=== PATIENT | female | born 1960 | race Caucasian/White ===

== ENCOUNTER 2019-11-11 13:28 | Observation (INO) | payer OTHER, MEDICAID, SELFPAY ==
[2019-11-11] VITALS (14 sets, daily range): BP systolic 132–161; BP diastolic 68–113; PULSE 71–107; RESP 14–20; TEMP 36.8–37.1; O2SAT 95–100; BMI 36.6
--- NOTE | 2019-11-11 13:51 | ED_ITS ---
HPI - SOB/Dyspnea General Chief Complaint: Shortness of Breath/Dyspnea Stated Complaint: called 911 for SOB/dizziness/emt sent to ER Time Seen by Provider: 11/11/19 13:34 Source: patient Mode of arrival: Ambulatory Limitations: no limitations History of Present Illness HPI Narrative: PATIENT IS A 58-YEAR-OLD FEMALE WHO IS WHO PRESENTS WITH SHORTNESS OF BREATH AND LIGHTHEADEDNESS. She states that this morning she stood up and got a little lightheaded and had some shaking afterwards she felt extremely short of breath which prompted her to call 911. She was not transported by EMS but came in for evaluation. She has no chest pain no fevers no body aches no sore throat. She denies any orthopnea or extremity edema. She says she does get short of breath with exertion. She had an episode similar to this at Thanksgiving at her parent's house as well. sHe admits to drinking alcohol last few nights but typically does not. She denies any recent travel no hemoptysis. MD Complaint: shortness of breath Related Data Home Medications Medication Instructions Recorded Confirmed No Known Home Medications 11/11/19 11/11/19 Allergies Allergy/AdvReac Type Severity Reaction Status Date / Time No Known Drug Allergies Allergy Verified 11/11/19 13:40 Review of Systems Review of Systems Narrative: GENERAL: Denies chills, fatigue, malaise, fever, sweats, travel HEENT: Denies sinus pain, ear pain, sore throat, difficulty swallowing, neck pain RESPIRATORY: See HPI CARDIOVASCULAR: Denies chest pain, palpitations, orthopnea, edema GASTROINTESTINAL: Denies nausea, vomiting, abdominal pain, diarrhea, constipation, melena. : Denies dysuria, frequency, incontinence, hematuria, urinary retention, flank pain. MUSCULOSKELETAL: Denies weakness, joint pain, or bony pain SKIN: No rash, no erythema, no pruritus NEUROLOGIC: Denies weakness, dizziness, headache, numbness, change in speech, confusion PSYCHIATRIC: No concerning psychosocial issues. 12 point review of systems is negative except for those stated above and HPI Patient History Medical History Patient denies medical problems (Acute) Social History household members: family Smoking Status: Never smoker Smoking Status: Never smoker alcohol intake frequency: 3 or more drinks per day Substance Use Type: does not use Exam Initial Vital Signs Initial Vital Signs: Vital Signs Temperature 98.3 F 11/11/19 13:28 Pulse Rate 97 H 11/11/19 13:28 Respiratory Rate 14 11/11/19 13:28 Blood Pressure 153/113 H 11/11/19 13:28 Pulse Oximetry 98 11/11/19 13:28 GENERAL: Well-appearing, well-nourished and in no acute distress. HEENT: Head atraumatic,EOMI, pupils reactive, face symmetric, moist mucous membranes CARDIOVASCULAR: Regular rate and rhythm without murmurs, rubs or gallops. RESPIRATORY: Breath sounds equal bilaterally, no wheezes rales or rhonchi. ABDOMEN: Soft, nontender. Normoactive bowel sounds all 4 quadrants. No guardin g or rebound. EXTREMITIES: Normal range of motion, no clubbing or edema. Neurovascularly intact NEUROLOGICAL: Alert and oriented x4.Normal gait and speech. Cranial nerves II through XII grossly intact. SKIN: Warm, dry, no laceration, no petechiae, no rashes or lesions. Course Orders Ordered: ED Orders 11/11/19 13:39 B Type Natriuretic Peptide Stat Complete Blood Count AUTO DIFF Stat Comprehensive Metabolic Panel Stat D Dimer Stat Lipase Stat Partial Thromboplastin Time Stat Prothrombin Time INR Stat Troponin & CK Cardiac Panel Stat 11/11/19 13:51 XR chest 1V Stat EKG-12 Lead Stat 11/11/19 13:54 Magnesium Stat 11/11/19 14:22 CT angio chest PE protocol Stat Acetaminophen (Tylenol) 650 mg PO Q6HR PRN PRN Reason: Fever/Mild Pain (1-3) Al Hydrox/Mg Hydrox/Simethicone (Maalox Plus) 30 ml PO Q6HR PRN PRN Reason: Dyspepsia Naloxone HCl (Narcan) 0.2 mg IV Q2MIN PRN PRN Reason: Opiate Reversal Discontinued Medications Sodium Chloride (Normal Saline 0.9%) 1,000 mls @ 1,000 mls/hr IV BOLUS ONE Stop: 11/11/19 15:26 Last Infusion: 11/11/19 16:30 Dose: 0 mls/hr Documented by: Admin: 11/11/19 14:32 Dose: 1,000 mls/hr Documented by: ABAD Metoprolol Tartrate (Lopressor) 5 mg IV NOW ONE Stop: 11/11/19 14:27 Last Admin: 11/11/19 14:32 Dose: 5 mg Documented by: ABAD Consultations Consultation #1: Cardiology, recommends patient be admitted for observation on the monitor. She likely was having longer runs at home causing her to be symptomatic. May require metoprolol but also request an echocardiogram. Time: 15:58 Vital Signs Vital signs: Vital Signs - 8 hr 11/11/19 13:28 11/11/19 14:06 11/11/19 14:15 Temperature 98.3 F Pulse Rate 97 H 107 H 101 H Respiratory Rate 14 15 18 Blood Pressure 153/113 H Blood Pressure [Right Arm] 145/68 H 154/90 H Pulse Oximetry 98 97 97 11/11/19 14:33 11/11/19 14:51 11/11/19 15:22 Temperature Pulse Rate 99 H 84 81 Respiratory Rate 18 15 16 Blood Pressure Blood Pressure [Right Arm] 137/95 H 141/104 H Pulse Oximetry 100 97 95 11/11/19 15:31 11/11/19 16:00 Temperature Pulse Rate 82 79 Respiratory Rate 16 16 Blood Pressure Blood Pressure [Right Arm] 132/95 H 153/97 H Pulse Oximetry 98 99 MDM - SOB/Dyspnea Lab Data Attestation: I reviewed the patient's lab results. Result diagrams: 11/11/19 13:39 11/11/19 13:39 Labs: Lab Results 11/11/19 11/11/19 11/11/19 Range/Units 13:39 13:39 13:39 WBC 7.7 (4.5-11.0) X10^3/uL RBC 4.49 (4.0-5.2) X10^6/uL Hgb 14.5 (12.0-16.0) g/dL Hct 41.9 (36-46) % MCV 93.3 (80-100) fL MCH 32.3 (26-34) PG MCHC 34.7 (30-36) % RDW 16.4 H (11.6-14.8) % Plt Count 265 (150-400) X10^3/uL Neut % (Auto) 66.7 (50-75) % Lymph % (Auto) 19.2 L (25-40) % Thurston % (Auto) 11.3 (3-14) % Eos % (Auto) 0.8 L (2-4) % Baso % (Auto) 2.0 (0-2) % Neut # (Auto) 5200 (0695-1697) /uL Lymph # (Auto) 1500 (6291-4549) /uL Thurston # (Auto) 900 (0-900) /uL Eos # (Auto) 100 (0-450) /uL Baso # (Auto) 200 H (0-100) /uL PT 11.1 (10.1-12.7) SECONDS INR 1.0 (0.9-1.3) APTT 30 (26.4-36.2) SECONDS D-Dimer (<230) ng/mL Sodium 139 (137-145) mmol/L Potassium 4.2 (3.4-5.1) mmol/L Chloride 103 (98-107) mmol/L Carbon Dioxide 23 (22-32) mmol/L BUN 14 (7-17) mg/dL Creatinine 0.80 (0.52-1.04) mg/dL Estimated GFR > 60.0 (>60) mL/min BUN/Creatinine Ratio 17.5 (6-22) Glucose 114 H (70-100) mg/dL Calcium 10.2 (8.4-10.2) mg/dL Magnesium (1.6-2.3) mg/dL Total Bilirubin 0.7 (0.2-1.3) mg/dL AST 58 H (14-36) IU/L ALT 47 H (<35) IU/L Alkaline Phosphatase 67 (38-126) U/L Total Creatine Kinase 50 (30-135) U/L CK-MB (CK-2) TNP CK-MB (CK-2) Rel Index TNP Troponin I < 0.012 (0.01-0.034) ng/mL B-Natriuretic Peptide (<100) Total Protein 8.3 H (6.3-8.2) g/dL Albumin 4.8 (3.5-5.0) g/dL Globulin 3.5 (1.7-4.1) g/dL Albumin/Globulin Ratio 1.4 (1.0-2.8) Lipase 97 (23-300) U/L TSH (0.47-4.68) uIU/mL 11/11/19 11/11/19 11/11/19 Range/Units 13:39 13:39 13:39 WBC (4.5-11.0) X10^3/uL RBC (4.0-5.2) X10^6/uL Hgb (12.0-16.0) g/dL Hct (36-46) % MCV (80-100) fL MCH (26-34) PG MCHC (30-36) % RDW (11.6-14.8) % Plt Count (150-400) X10^3/uL Neut % (Auto) (50-75) % Lymph % (Auto) (25-40) % Thurston % (Auto) (3-14) % Eos % (Auto) (2-4) % Baso % (Auto) (0-2) % Neut # (Auto) (9735-0671) /uL Lymph # (Auto) (1029-8659) /uL Thurston # (Auto) (0-900) /uL Eos # (Auto) (0-450) /uL Baso # (Auto) (0-100) /uL PT (10.1-12.7) SECONDS INR (0.9-1.3) APTT (26.4-36.2) SECONDS D-Dimer 520 H (<230) ng/mL Sodium (137-145) mmol/L Potassium (3.4-5.1) mmol/L Chloride (98-107) mmol/L Carbon Dioxide (22-32) mmol/L BUN (7-17) mg/dL Creatinine (0.52-1.04) mg/dL Estimated GFR (>60) mL/min BUN/Creatinine Ratio (6-22) Glucose (70-100) mg/dL Calcium (8.4-10.2) mg/dL Magnesium (1.6-2.3) mg/dL Total Bilirubin (0.2-1.3) mg/dL AST (14-36) IU/L ALT (<35) IU/L Alkaline Phosphatase (38-126) U/L Total Creatine Kinase (30-135) U/L CK-MB (CK-2) CK-MB (CK-2) Rel Index Troponin I (0.01-0.034) ng/mL B-Natriuretic Peptide < 100 (<100) Total Protein (6.3-8.2) g/dL Albumin (3.5-5.0) g/dL Globulin (1.7-4.1) g/dL Albumin/Globulin Ratio (1.0-2.8) Lipase (23-300) U/L TSH 1.42 (0.47-4.68) uIU/mL 12// Range/Units 13:54 WBC (4.5-11.0) X10^3/uL RBC (4.0-5.2) X10^6/uL Hgb (12.0-16.0) g/dL Hct (36-46) % MCV (80-100) fL MCH (26-34) PG MCHC (30-36) % RDW (11.6-14.8) % Plt Count (150-400) X10^3/uL Neut % (Auto) (50-75) % Lymph % (Auto) (25-40) % Thurston % (Auto) (3-14) % Eos % (Auto) (2-4) % Baso % (Auto) (0-2) % Neut # (Auto) (6736-8668) /uL Lymph # (Auto) (4041-9765) /uL Thurston # (Auto) (0-900) /uL Eos # (Auto) (0-450) /uL Baso # (Auto) (0-100) /uL PT (10.1-12.7) SECONDS INR (0.9-1.3) APTT (26.4-36.2) SECONDS D-Dimer (<230) ng/mL Sodium (137-145) mmol/L Potassium (3.4-5.1) mmol/L Chloride (98-107) mmol/L Carbon Dioxide (22-32) mmol/L BUN (7-17) mg/dL Creatinine (0.52-1.04) mg/dL Estimated GFR (>60) mL/min BUN/Creatinine Ratio (6-22) Glucose (70-100) mg/dL Calcium (8.4-10.2) mg/dL Magnesium 1.8 (1.6-2.3) mg/dL Total Bilirubin (0.2-1.3) mg/dL AST (14-36) IU/L ALT (<35) IU/L Alkaline Phosphatase (38-126) U/L Total Creatine Kinase (30-135) U/L CK-MB (CK-2) CK-MB (CK-2) Rel Index Troponin I (0.01-0.034) ng/mL B-Natriuretic Peptide (<100) Total Protein (6.3-8.2) g/dL Albumin (3.5-5.0) g/dL Globulin (1.7-4.1) g/dL Albumin/Globulin Ratio (1.0-2.8) Lipase (23-300) U/L TSH (0.47-4.68) uIU/mL Imaging Data Chest x-ray: Radiologist's Impression: PROCEDURE: XR CHEST 1V INDICATIONS: chest pain TECHNIQUE: One view of the chest was acquired. COMPARISON: None. FINDINGS: Surgical changes and devices: None. Lungs and pleura: Lungs are clear. No pleural effusions or pneumothorax. Mediastinum: Mediastinal contours appear normal. Heart size is normal. Bones and chest wall: No suspicious bony lesions. Overlying soft tissues appear unremarkable. IMPRESSION: No acute cardiopulmonary findings. Dictated by: Cari Womack M.D. on 11/11/2019 at 13:21 CT scan - chest: Radiologist's Impression: PROCEDURE: CT ANGIO CHEST PE PROTOCOL INDICATIONS: sob with + dimer TECHNIQUE: After the administration of intravenous contrast, 2 mm thick sections acquired from the pulmonary apices to the posterior costophrenic angles. 3-dimensional maximum intensity projection (MIP) coronal and sagittal reformats were then acquired through the thorax. For radiation dose reduction, the following was used: automated exposure control, adjustment of mA and/or kV according to patient size. COMPARISON: None. FINDINGS: Image quality: Excellent. Pulmonary arteries: Pulmonary arteries are normal in size, and demonstrate no intraluminal filling defects to suggest central pulmonary embolism. Lungs and pleura: Lungs are clear. No pleural effusions or pneumothorax. Central and peripheral airways are patent. Mediastinum: Heart size is normal, without pericardial effusion. No mediastinal or hilar adenopathy. Thoracic aorta is normal in caliber and enhancement. Esophagus is normal in caliber, without hiatal hernia. Bones and chest wall: Mild circumferential wall thickening involving the distal esophagus with prominent paraesophageal lymph nodes. Abdomen: Diffuse fatty infiltration of the visualized liver. Visualized upper abdominal solid organs appear normal in the early arterial phase of enhancement. IMPRESSION: 1. No pulmonary embolus. 2. No lung consolidation or pleural effusions. 3. Mild circumferential wall thickening involving the distal esophagus with prominent adjacent paraesophageal lymph nodes which could represent esophagitis or early neoplastic process. Recommend endoscopy when clinically feasible. 4. Hepatic steatosis. Dictated by: Awilda Cheng MD, PhD on 11/11/2019 at 15:17 ECG Data Attestation: I personally reviewed and interpreted this ECG as follows: Prior ECG tracings: not available for review Interpretation: Normal sinus rhythm rate 100 p.r[address] interval [address] changes MDM Narrative Medical decision making narrative: Patient has had about 3 4 runs of nonsustained ventricular tachycardia lasting about 5 seconds in certain less than 10 seconds. His she says that she does feel a little wear during these t imes but she says nothing like she did at home. D-dimer is over [address] to rule out PE. CT is negative she is given IV fluids and 1 dose of IV Lopressor. Cardiology consult recommends at least observation. Thinks that she likely had longer runs at home. Her runs in the emergency department have not been long enough for her to be symptomatic. Patient even concurs with this she states agustin t she previously home felt much worse and in the emergency department did not feel that bad. Dr. tidwell rash updated on patient's symptoms test results and cardiology recommendations. Discharge Plan Departure Patient Disposition: Admitted as Observation Clinical Impression: Arrhythmia Qualifiers: Arrhythmia type: ventricular tachycardia Qualified Code(s): I47.2 - Ventricular tachycardia Discharge Date/Time: 11/11/19 16:45 Admit Date/Time: 11/11/19 16:15 Admit Provider: Julian Kong
[2019-11-11 14:02] LABS: Prothrombin Time 11.1 SECONDS (10.1-12.7)
[2019-11-11 14:03] LABS: Add Manual Diff / Slide Review NO; Basophils Absolute Auto 200 /uL (0-100); Eosinophils Absolute Auto 100 /uL (0-450); Eosinophils Percent Auto 0.8 % (2-4); Hematocrit 41.9 % (36-46); Hemoglobin 14.5 g/dL (12.0-16.0); Lymphocytes Absolute Auto 1500 /uL (1100-4500); Lymphocytes Percent Auto 19.2 % (25-40); Mean Corpuscular HGB Conc 34.7 % (30-36); Mean Corpuscular Hemoglobin 32.3 PG (26-34); Mean Corpuscular Volume 93.3 fL (80-100); Monocytes Absolute Auto 900 /uL (0-900); Monocytes Percent Auto 11.3 % (3-14); Neutrophils Absolute Auto 5200 /uL (1500-7000); Neutrophils Percent Auto 66.7 % (50-75); Platelet Count 265 X10^3/uL (150-400); Red Blood Cell Count 4.49 X10^6/uL (4.0-5.2); Red Cell Distribution Width 16.4 % (11.6-14.8); White Blood Cell Count 7.7 X10^3/uL (4.5-11.0)
[2019-11-11 14:05] LABS: PTT Partial Thromboplastin Tim 30 SECONDS (26.4-36.2)
[2019-11-11 14:08] LABS: Alanine Aminotransferase 47 IU/L (<35); Albumin 4.8 g/dL (3.5-5.0); Albumin Globulin Ratio 1.4 (1.0-2.8); Alkaline Phosphatase 67 U/L (38-126); Aspartate Aminotransferase 58 IU/L (14-36); BUN Creatinine Ratio 17.5 (6-22); Bilirubin Total 0.7 mg/dL (0.2-1.3); Blood Urea Nitrogen 14 mg/dL (7-17); Calcium 10.2 mg/dL (8.4-10.2); Carbon Dioxide 23 mmol/L (22-32); Chloride 103 mmol/L (98-107); Creatine Kinase 50 U/L (30-135); Estimated Glomerular Filt Rate > 60.0 mL/min (>60); Globulin 3.5 g/dL (1.7-4.1); Glucose 114 mg/dL (70-100); HEMOLYSIS < 15 (0-50); Lipase 97 U/L (23-300); Potassium 4.2 mmol/L (3.4-5.1); Sodium 139 mmol/L (137-145); Total Protein 8.3 g/dL (6.3-8.2)
[2019-11-11 14:16] LABS: D Dimer 520 ng/mL (<230)
[2019-11-11 14:19] LABS: Troponin I < 0.012 ng/mL (0.01-0.034)
--- NOTE | 2019-11-11 14:22 | DI.CT.S_ITS ---
PROCEDURE: CT ANGIO CHEST PE PROTOCOL INDICATIONS: sob with + dimer TECHNIQUE: After the administration of intravenous contrast, 2 mm thick sections acquired from the pulmonary apices to the posterior costophrenic angles. 3-dimensional maximum intensity projection (MIP) coronal and sagittal reformats were then acquired through the thorax. For radiation dose reduction, the following was used: automated exposure control, adjustment of mA and/or kV according to patient size. COMPARISON: None. FINDINGS: Image quality: Excellent. Pulmonary arteries: Pulmonary arteries are normal in size, and demonstrate no intraluminal filling defects to suggest central pulmonary embolism. Lungs and pleura: Lungs are clear. No pleural effusions or pneumothorax. Central and peripheral airways are patent. Mediastinum: Heart size is normal, without pericardial effusion. No mediastinal or hilar adenopathy. Thoracic aorta is normal in caliber and enhancement. Esophagus is normal in caliber, without hiatal hernia. Bones and chest wall: Mild circumferential wall thickening involving the distal esophagus with prominent paraesophageal lymph nodes. Abdomen: Diffuse fatty infiltration of the visualized liver. Visualized upper abdominal solid organs appear normal in the early arterial phase of enhancement. IMPRESSION: 1. No pulmonary embolus. 2. No lung consolidation or pleural effusions. 3. Mild circumferential wall thickening involving the distal esophagus with prominent adjacent paraesophageal lymph nodes which could represent esophagitis or early neoplastic process. Recommend endoscopy when clinically feasible. 4. Hepatic steatosis. Dictated by: Awilda Cheng MD, PhD on 11/11/2019 at 15:17 Approved by: Awilda Cheng MD, PhD on 11/11/2019 at 15:21
[2019-11-11 14:27] LABS: B Type Natriuretic Peptide < 100 (<100)
[2019-11-11] MEDS: SODIUM CHLORIDE 0.9% 1,000 ML 1000 ML IV (14:32)
[2019-11-11] MEDS: METOPROLOL TARTRATE 5 MG/5 ML INJ IV (14:32)
[2019-11-11 16:20] LABS: Magnesium 1.8 mg/dL (1.6-2.3)
--- NOTE | 2019-11-11 17:07 | DI.ECHO.S_ITS ---
[place] [facility]---------+ [facility] +---------+ : : [address] [place] : : : : [id number] : : : : Phone: [phone]+ Echocardiogram Report + + :Name: EVER TAN Study Date: 11/12/2019 Height: 65 in : :[facility] Weight: 220 lb : : Gender: Female BSA: 2.1 m2 : :: 1960 Age: 59 yrs BP: 143/94 mmHg: :Reason For Study: VTACH : :Ordering Physician: Dr. Jordan : :Luann Performed By: Wander Bryant : :Referring: TEENA PANTOJA : + + Interpretation Summary The ejection fraction is estimated to be 50-55%. Poor endocardial definition, however inferoapical hypokinesis is suspected. There is no significant valvular heart disease. Procedure: A two-dimensional transthoracic echocardiogram with color flow and Doppler was performed. The study quality was technically adequate. There is no prior echocardiogram noted for this patient. The patient was in normal sinus rhythm during the exam. Left Ventricle: The left ventricle is borderline dilated. There is normal left ventricular wall thickness. The ejection fraction is estimated to be 50- 55%. Poor endocardial definition, however inferoapical hypokinesis is suspected. Right Ventricle: The right ventricle is normal in size and function. Atria: The left atrial size is normal. Right atrial size is normal. The interatrial septum is intact with no evidence for an atrial septal defect. Mitral Valve: The mitral valve is normal in structure and function. There is trace mitral regurgitation. Aortic Valve: The aortic valve is trileaflet. The aortic valve opens well. There is trace aortic regurgitation. Tricuspid Valve: The tricuspid valve is normal in structure and function. There is trace tricuspid regurgitation. Pulmonary artery pressures cannot be estimated because of the lack of a measurable TR jet velocity. Pulmonic Valve: The pulmonic valve is normal in structure and function. There is trace pulmonic regurgitation. Great Vessels: The aortic root is borderline dilated. The ascending aorta is at the upper limits of normal in size. The aortic arch is at the upper limits of normal in size. Mild pulmonary artery dilation. The inferior vena cava was not well visualized. Pericardium/ Pleura There is no pericardial effusion. There is no pleural effusion. MMode/2D Measurements & Calculations LVIDd: 5.2 cm LVOT diam: 2.2 cm LVIDs: 3.6 cm Ao root diam: 3.6 cm FS: 31.2 % Aortic Jxn: 3.2 cm EPSS: 0.78 cm asc Aorta Diam: 3.6 cm IVSd: 1.1 cm LVPWd: 0.94 cm LV wallis. diameter/BSA (cm/m^2): 2.5 LV sys. diameter/BSA (cm/m^2): 1.7 LA A2 area: 19.5 cm2 RA long axis: 4.1 cm LA A4 area: 17.7 cm2 RA area: 9.7 cm2 LA length (vol): 5.6 cm RA vol: 19.3 ml LA vol: 52.3 ml RA : 9.4 ml/m2 LA vol index: 25.4 ml/m2 TAPSE: 2.1 cm Doppler Measurements & Calculations Ao V2 max: 126.8 cm/sec LVOT Max Noe: 97.2 cm/sec Ao V2 mean: 83.3 cm/sec LV V1 max P.8 mmHg Ao max P.4 mmHg LV V1 VTI: 21.6 cm Ao mean P.2 mmHg CONNOR(I,D): 3.3 cm2 Ao V2 VTI: 24.9 cm CONNOR(V,D): 3.0 cm2 sev ratio: 0.86 CONNOR indexed to BSA (cm^2/m^2): 1.6 MV E max noe: 50.1 cm/sec PA V2 max: 37.8 cm/sec MV A max noe: 86.4 cm/sec PA V2 mean: 28.9 cm/sec MV E/A: 0.58 PA mean P.37 mmHg Med Peak E' Noe: 4.1 cm/sec PA Accel Time: 0.13 sec E/E' med: 12.1 Lat Peak E' Noe: 6.3 cm/sec E/E' lat: 8.0 E/e' average: 10.1 MV dec time: 0.26 sec SV(LVOT): 83.4 ml [place] Physician:11:48 AM
--- NOTE | 2019-11-11 17:09 | P.HP_ITS ---
History of Present Illness History of Present Illness Date Patient Seen: 11/11/19 Chief complaint: called 911 for SOB/dizziness/emt sent to ER Narrative: Patient is a 59-year-old female with obesity but who otherwise has been in good health, not on any medications, presented to emergency department with complaints of worsening shortness of breath and lightheadedness. On ER telemetry she had several runs of wide complex tachycardia, longest 15 beats, which were asymptomatic. Patient states she was feeling short of breath in lightheaded when came into the ER and then symptoms went away once she was moved to hospital bed. Patient states she had more severe symptoms early this morning which would come and go and seemed to be relieved by rest. She 1st noticed onset of intermittent shortness of breath, lightheadedness and near syncope about 2 weeks ago with significant worsening of symptoms this a.m.. Symptoms did seem to come on during light activity and relieved by rest. She denies any chest pain or syncope. She has 1 cup of coffee in a.m. and does not take any OTC supplements. She does report excess alcohol use typically 3 glasses of wine a day and states she had a little more alcohol last night. She is a nonsmoker. Family history positive for atrial fibrillation in her mom but no history of coronary artery disease. ER vitals initially hypertensive with BP 153/98 and stay moderately elevated, heart rate 80, respirations normal, O2 sat 99%. EKG normal sinus rhythm with PAC. Normal troponin, CBC, lytes, magnesium 1.8. D- dimer mildly elevated but CT angio negative for pulmonary embolism. The radiologist reported distal esophageal thickening with prominent adjacent paraesophageal lymph nodes on CT. Patient does note occasional acid reflux. The ER provider reviewed case with cardiology warehouse production worker, Dr. Vigil, who recommended patent get admitted for telemetry monitoring and ECO. Patient is established at [facility] with provider Jennifer Trevizo. Patient History Medical History Patient denies medical problems (Acute) Family & Social History Safety & Behavioral: Feels Safe in Current Yes Environment Tobacco & Substance use: Smoking Status Never smoker alcohol intake frequency 3 or more drinks per day Substance Use Type does not use Meds Home Medications and Allergies Home Medications Medication Instructions Recorded Confirmed Type No Known Home Medications 11/11/19 11/11/19 History Allergies Allergy/AdvReac Type Severity Reaction Status Date / Time No Known Drug Allergies Allergy Verified 11/11/19 13:40 Review of Systems Review of Systems ROS Unobtainable: All systems reviewed & are unremarkable except as noted in HPI and below Exam Vital Signs (past 8 hours): - 11/11/19 13:28 11/11/19 14:06 11/11/19 14:15 Temperature 98.3 F Pulse Rate 97 H 107 H 101 H Respiratory Rate 14 15 18 Blood Pressure 153/113 H Blood Pressure [Right Arm] 145/68 H 154/90 H Pulse Oximetry 98 97 97 11/11/19 14:33 11/11/19 14:51 11/11/19 15:22 Temperature Pulse Rate 99 H 84 81 Respiratory Rate 18 15 16 Blood Pressure Blood Pressure [Right Arm] 137/95 H 141/104 H Pulse Oximetry 100 97 95 11/11/19 15:31 11/11/19 16:00 Temperature Pulse Rate 82 79 Respiratory Rate 16 16 Blood Pressure Blood Pressure [Right Arm] 132/95 H 153/97 H Pulse Oximetry 98 99 Oxygen Delivery Method Room Air Narrative Exam Narrative: GENERAL: This is an alert well-nourished, well-developed patient, in no apparent distress. HEAD: Atraumatic. Normocephalic. EYES: Pupils equal, round and reactive. Extraocular motions intact. No scleral icterus. No injection or drainage. OROPHARYNX: moist mucosa NECK: Trachea midline. No JVD or lymphadenopathy. CARDIOVASCULAR: Normal S1 and S2, regular rate and rhythm without murmurs, gallops, or rubs. RESPIRATORY: Clear to auscultation bilaterally. GASTROINTESTINAL: Abdomen nondistended, soft, non-tender. No hepato- splenomegaly, or palpable masses. EXTREMITIES: No edema. NEUROLOGICAL: Alert, well oriented, speech is intact, normal bilateral upper and lower extremity strength SKIN: warm, dry, no rash Objective Labs Result Diagrams: 11/11/19 13:39 11/11/19 13:39 Labs: Laboratory Results - last 24 hr 11/11/19 11/11/19 11/11/19 13:39 13:39 13:39 WBC 7.7 RBC 4.49 Hgb 14.5 Hct 41.9 MCV 93.3 MCH 32.3 MCHC 34.7 RDW 16.4 H Plt Count 265 Neut % (Auto) 66.7 Lymph % (Auto) 19.2 L Kleberg % (Auto) 11.3 Eos % (Auto) 0.8 L Baso % (Auto) 2.0 Neut # (Auto) 5200 Lymph # (Auto) 1500 Kleberg # (Auto) 900 Eos # (Auto) 100 Baso # (Auto) 200 H PT 11.1 INR 1.0 APTT 30 D-Dimer Sodium 139 Potassium 4.2 Chloride 103 Carbon Dioxide 23 BUN 14 Creatinine 0.80 Estimated GFR > 60.0 BUN/Creatinine Ratio 17.5 Glucose 114 H Calcium 10.2 Magnesium Total Bilirubin 0.7 AST 58 H ALT 47 H Alkaline Phosphatase 67 Total Creatine Kinase 50 CK-MB (CK-2) TNP CK-MB (CK-2) Rel Index TNP Troponin I < 0.012 B-Natriuretic Peptide Total Protein 8.3 H Albumin 4.8 Globulin 3.5 Albumin/Globulin Ratio 1.4 Lipase 97 11/11/19 11/11/19 11/11/19 13:39 13:39 13:54 WBC RBC Hgb Hct MCV MCH MCHC RDW Plt Count Neut % (Auto) Lymph % (Auto) Kleberg % (Auto) Eos % (Auto) Baso % (Auto) Neut # (Auto) Lymph # (Auto) Kleberg # (Auto) Eos # (Auto) Baso # (Auto) PT INR APTT D-Dimer 520 H Sodium Potassium Chloride Carbon Dioxide BUN Creatinine Estimated GFR BUN/Creatinine Ratio Glucose Calcium Magnesium 1.8 Total Bilirubin AST ALT Alkaline Phosphatase Total Creatine Kinase CK-MB (CK-2) CK-MB (CK-2) Rel Index Troponin I B-Natriuretic Peptide < 100 Total Protein Albumin Globulin Albumin/Globulin Ratio Lipase Assessment & Plan Assessment & Plan narrative: 1. Nonsustained wide complex tachycardia, present on admission -this could be V-tach versus SVT with aberrant conduction, patient had several runs of wide complex tachycardia in the ER, longus 15 beats, and was asymptomatic during this time, however she may have had more Systane tachycardia at home which resulted in her reported symptoms of dyspnea and near syncope. Patient has excess alcohol use which may be precipitating tachycardia. Also symptoms appear to be associated with exertion and relieved by rest raising concern for occlusive coronary artery disease. As noted, normal troponin, lytes, magnesium. -admit to observation for telemetry monitoring -check TSH, repeat troponin -transthoracic echo in a.m. -myocardial perfusion stress test 2. Elevated blood pressure, present on admission -patient with moderately elevated BP in ER without prior diagnosis of hypertension -monitor blood pressures and consider starting on antihypertensive medication 3. Distal esophageal thickening on CT -radiologist noted distal esophageal thickening and prominent paraesophageal lymph nodes, differential diagnosis includes acid reflux disease versus esophageal CA, patient does report symptoms of occasional heartburn -patient advised of CT findings with recommendation to have an upper endoscopy arranged as outpatient 4. Alcohol dependency -patient aware of excess drinking and states she does plan to cut back on alcohol intake
[2019-11-11 18:12] LABS: TSH w/ Reflex to FT4 1.42 uIU/mL (0.47-4.68)
--- NOTE | 2019-11-11 20:30 | PC.NURSE ---
Admit note: Latoya brought from ER via stretcher, able to transfer self to bed. Appears very anxious r/t situation, for the 1st 10-15 minutes she was in her room, she was looking at nurse and back to WALL WASHER very quickly, speech rapid, oriented to situation, asking good questions r/t V-tach and reason for hospitalization although appearing very nervous & apprehensive. She told me multiple times I know I need to stop drinking and eating the way I have-I am going back on a strict diet & may go vegan again. I printed her educational forms about V-Tach and DI for V-Tach. I told her that since the ER had given her Metoprolol she has had no more reported runs of V-tach and very rarely a PVC. Telemetry in place, rhythm is normal sinus with rate in 70's & 80's. BP at time of admission was 161/103, since then patient more calm & relaxed, last BP 134/80. Earlier tonight I notified Dr Kong of hypertension. She denies any pain, nausea or lightheadedness. RA oxygen saturation 100% and respirations 18-20/minute. Afebrile. She reported recent dog bite on her right thumb, thumb covered with a bandaid. She refused me to change bandaid but did say she has punctures. She told me that yesterday her thumb seemed swollen but today it did not feel swollen. No redness or swelling observed to hand or thumb outside of bandaid. Denies nausea, took bites of vegetarian dinner that our kitchen brought but refused majority of it saying it is awful. Cup of tomato soup given per her request. She is ambulating in room independently, wearing skid proof socks & denies recent falls. Instructed to call nurse if she has needs or concerns. Oriented to room & call button.
[2019-11-11 22:32] LABS: Troponin I 0.013 ng/mL (0.01-0.034)
[2019-11-12] VITALS (10 sets, daily range): BP systolic 131–143; BP diastolic 52–94; PULSE 69–83; RESP 16–20; TEMP 36.3–37.1; O2SAT 95–100
--- NOTE | 2019-11-12 00:07 | PC.NURSE ---
Addendum entered by Yung Etienne R.N. 11/12/19 03:57: 0340: Call from GWENDOLYN Castle in ICU to report pt having multifocal PVCs, though HR 80-90's. D.MORRIS Tovar notified. Pt put on O2 2L/NC. Addendum entered by Yung Etienne R.N. 11/12/19 03:26: 0315: Pt up to bathroom at 0300. ICU reports pt had a few short runs of SVT, which is resolving. HR at this time is in the 90's, with some PVCs. Pt denies shortness of breath, chest pain or fluttering sensation, or dizziness. Resting in bed. Original Note: Photographic Colorist Note: 0000: Awake, resting in bed. Pt denies chest pain or pressure, or any fluttering feeling. Vital signs stable. IV in place in lt AC. Remains on telemetry.
[2019-11-12 06:30] LABS: Add Manual Diff / Slide Review NO; Basophils Absolute Auto 0 /uL (0-100); Basophils Percent Auto 0.4 % (0-2); Eosinophils Absolute Auto 100 /uL (0-450); Hematocrit 37.6 % (36-46); Hemoglobin 12.7 g/dL (12.0-16.0); Lymphocytes Absolute Auto 1100 /uL (1100-4500); Lymphocytes Percent Auto 19.9 % (25-40); Mean Corpuscular HGB Conc 33.8 % (30-36); Mean Corpuscular Hemoglobin 32.1 PG (26-34); Mean Corpuscular Volume 94.8 fL (80-100); Monocytes Absolute Auto 800 /uL (0-900); Monocytes Percent Auto 15.9 % (3-14); Neutrophils Absolute Auto 3300 /uL (1500-7000); Neutrophils Percent Auto 61.8 % (50-75); Platelet Count 206 X10^3/uL (150-400); Red Blood Cell Count 3.96 X10^6/uL (4.0-5.2); White Blood Cell Count 5.4 X10^3/uL (4.5-11.0)
[2019-11-12 06:37] LABS: BUN Creatinine Ratio 16.3 (6-22); Blood Urea Nitrogen 13 mg/dL (7-17); Calcium 9.4 mg/dL (8.4-10.2); Carbon Dioxide 26 mmol/L (22-32); Chloride 103 mmol/L (98-107); Estimated Glomerular Filt Rate > 60.0 mL/min (>60); Glucose 114 mg/dL (70-100); HEMOLYSIS < 15 (0-50); Potassium 4.4 mmol/L (3.4-5.1); Sodium 137 mmol/L (137-145)
[2019-11-12 06:49] LABS: Troponin I < 0.012 ng/mL (0.01-0.034)
--- NOTE | 2019-11-12 10:09 | CM.DANOTE ---
DCP: Case received, EMR reviewed and met with patient. Introduced self and role. Was able to meet with patient in her room and obtain baseline health and activity information. DCP assessment completed with information currently available. Patient is a 59 year old female who admitted yesterday afternoon to the care of the hospitalist team. PCP: Dr. Jennifer Trevizo at [facility]. Patient came to the hospital via family vehicle secondary to having some dizziness and shortness of breath. She is here for a cardiac work up, for she has been having some ventricular tachycardia. Met with patient in her room. She is alert and oriented, independent. She is from the [place] area here visiting with her parents for the holidays. Patient stated, this could be happening because I drink too much, I usually have a few glasses of wine at night. She is , and does have a son named Yobany. Confirmed that her primary care is at the [facility]. P: Patient will be having echo and stress test today. She could potentially discharge home today. Melva Reveles RN/Jig And Fixture Builder Apprentice
[2019-11-12] MEDS: SODIUM CHLORIDE 0.9% FLUSH 10 ML IV ×2 (12:59→22:30)
--- NOTE | 2019-11-12 13:53 | PC.NURSE ---
Cardiac: No c/p today, tele has been sr w/pvc's. Has completed echo, awaiting treadmill. Hopes to d/c after tests are completed. Pt denies any concerns at this time.
--- NOTE | 2019-11-12 17:31 | PM.PN.1 ---
Subjective Subjective Date Patient Seen: 11/12/19 Time Patient Seen: 17:37 Interval history: Latoya Soto is a 59-year-old female with past medical history of obesity and alcohol use who was seen today for follow-up frequent supraventricular arrhythmias. She had an echocardiogram today which showed an EF of 50-55%, borderline dilated left ventricle with possible inferior hypokinesis however her endocardial definition was decreased. Her stress test today showed low likelihood of ischemia, however during exercise initiation she developed a supraventricular arrhythmia with left bundle branch morphology. Discussed the case with Cardiology, they recommended continuing to monitor the patient overnight after initiation of metoprolol. Metoprolol was started this evening and the plan is to monitor her for tolerance of this medication and to continue to monitor her arrhythmias. She ultimately will need a cardiac MRI and follow-up with an computer network support specialist as an outpatient for further evaluation of arrhythmogenic RV dysplasia. Exam Vital Signs (past 8 hours): - 11/12/19 12:00 11/12/19 15:45 Temperature 98.6 F 98.5 F Pulse Rate 69 74 Respiratory Rate 18 20 Blood Pressure 135/80 143/88 H Pulse Oximetry 98 98 Oxygen Delivery Method Nasal Cannula Oxygen Flow Rate 0 Narrative Exam Narrative: GENERAL APPEARANCE: Obese female, in no acute distress. SKIN: Inspection of the skin reveals no rashes, ulcerations or petechiae. HEENT: The sclerae were anicteric and conjunctivae were pink and moist. Extraocular movements were intact and pupils were equal, round with normal accommodation. External inspection of the ears and nose showed no scars, lesions, or masses. Lips, teeth, and gums showed normal mucosa. The oral mucosa, hard and soft palate, tongue and posterior pharynx were unremarkable. NECK: Supple and symmetric. There was no thyroid enlargement, and no tenderness, or masses were felt. CHEST: Normal AP diameter and normal contour without any kyphoscoliosis. LUNGS: Auscultation of the lungs revealed no wheezes, rhonchi, or rales. CARDIOVASCULAR: There was a regular rate and rhythm without any murmurs, gallops, rubs. Peripheral pulses were 2+ and symmetric. ABDOMEN: Soft and nontender with normal bowel sounds. No ascites was noted. MUSCULOSKELETAL: There was no tenderness or effusions noted. Muscle strength and tone were normal. EXTREMITIES: No cyanosis, clubbing or edema. NEUROLOGIC: Alert and oriented x 3. Normal affect. Gait was normal. Strength is +5/5 in the Upper Extremities and Lower Extremities Bilaterally. Sensation to touch was normal. Objective Labs Result Diagrams: 11/12/19 06:20 11/12/19 06:20 Labs: Laboratory Results - last 24 hr 11/11/19 11/11/19 11/12/19 13:39 22:05 06:20 WBC 5.4 RBC 3.96 L Hgb 12.7 Hct 37.6 MCV 94.8 MCH 32.1 MCHC 33.8 RDW 17.0 H Plt Count 206 Neut % (Auto) 61.8 Lymph % (Auto) 19.9 L Larue % (Auto) 15.9 H Eos % (Auto) 2.0 Baso % (Auto) 0.4 Neut # (Auto) 3300 Lymph # (Auto) 1100 Larue # (Auto) 800 Eos # (Auto) 100 Baso # (Auto) 0 Sodium Potassium Chloride Carbon Dioxide BUN Creatinine Estimated GFR BUN/Creatinine Ratio Glucose Calcium Troponin I 0.013 TSH 1.42 11/12/19 06:20 WBC RBC Hgb Hct MCV MCH MCHC RDW Plt Count Neut % (Auto) Lymph % (Auto) Larue % (Auto) Eos % (Auto) Baso % (Auto) Neut # (Auto) Lymph # (Auto) Larue # (Auto) Eos # (Auto) Baso # (Auto) Sodium 137 Potassium 4.4 Chloride 103 Carbon Dioxide 26 BUN 13 Creatinine 0.80 Estimated GFR > 60.0 BUN/Creatinine Ratio 16.3 Glucose 114 H Calcium 9.4 Troponin I < 0.012 TSH Assessment & Plan Assessment & Plan narrative: 1. Nonsustained wide complex tachycardia, present on admission - per cardiology this is likely supraventricular with a left bundle branch morphology. It appeared to be exercise induced. Cardiology would like an outpatient evaluation for possible arrhythmogenic RV dysplasia. They recommended a cardiac MRI and EP referral as an outpatient for further evaluation. They recommended initiating beta-amy therapy tonight and monitoring until tomorrow on beta-amy therapy. -continue telemetry -troponins negative, TSH unremarkable -TTE showing EF of 50-55%, possible inferior hypokinesis but poor endocardial definition. She has a borderline dilated left ventricle. No significant valvular disease. -myocardial perfusion stress showed low likelihood of cardiac ischemia. During the treadmill portion she needed to stop quickly as she developed her supraventricular arrhythmia. -outpatient EP referral and cardiac MRI, patient prefers this to be done at [facility] will try and arrange. 2. Elevated blood pressure, present on admission -patient with moderately elevated BP in ER without prior diagnosis of hypertension -she remains mildly elevated, will start metoprolol given recommendations above from cardiology. 3. Distal esophageal thickening on CT -radiologist noted distal esophageal thickening and prominent paraesophageal lymph nodes, differential diagnosis includes acid reflux disease versus esophageal CA, patient does report symptoms of occasional heartburn -patient advised of CT findings with recommendation to have an upper endoscopy arranged as outpatient 4. Alcohol dependency -patient aware of excess drinking and states she does plan to cut back on alcohol intake Dispo: Discharge likely tomorrow Quality VTE Deep Vein Thrombosis/Pulmonary Embolism Present on Admission: No
--- NOTE | 2019-11-12 17:43 | DI.NM.S_ITS ---
DATE OF SERVICE: 11/12/2019 PROCEDURE: Exercise perfusion study. INDICATIONS: Shortness of breath, right QRS tachycardia. RADIOPHARMACEUTICAL: 21.4 mCi of technetium-99m Myoview IV was injected at stress. Please note, this patient does not have any resting study. CARDIAC STRESS: Patient underwent exercise perfusion study under the supervision of an attending staff. She walked on Kevin protocol for 2 minutes 47 seconds and achieved maximum heart rate of 117. At that time, the patient had episode of wide QRS tachycardia. Her resting blood pressure, 150/88. Peak blood pressure reported to be 160/100. Patient felt dyspnea and lightheadedness. Test was terminated. Baseline EKG revealed sinus rhythm with intermittent nonsustained ventricular tachycardia up to 3-beat run as well as ventricular trigemini. During exercise, patient had frequent runs of nonsustained ventricular tachycardia, then had prolonged run of wide QRS tachycardia. During wide QRS tachycardia, there was evidence of capture beat with [place] normal conduction suggestive of ventricular tachycardia. During wide QRS tachycardia, there is a positive deflection in the inferior leads and in the chest leads, left bundle branch block pattern. Patient achieved 4.6 METs of workload. Functional aerobic impairment, +50%. RAW DATA: Breast shadow was seen. GATED STUDY: Stress LV ejection fraction reported to be 65 % without any obvious wall motion abnormalities. Lung/heart ratio is 0.36, which is within normal limits. Stress end-diastolic volume 126 mL. MYOCARDIAL PERFUSION SCAN: Stress supine images revealed small-sized mildly decreased perfusion of distal anterior wall and anterior apex which got resolved during prone images suggestive of breast tissue attenuation artifact. Prone images revealed normal myocardial perfusion. CONCLUSION: This is a normal myocardial perfusion study. However, patient has poor exercise tolerance. During baseline EKG, patient has intermittent nonsustained ventricular tachycardia, and during exercise, had prolonged wide QRS tachycardia run which appears to be ventricular tachycardia. There was capture beat seen suggestive of that we are most likely dealing with ventricular tachycardia. There is a possibility of RV outflow tract origin. Discussed the plan with the hospitalist team, Dr. Estrada. Patient is an alcoholic as well. Recommended optimal dose of beta amy, as well as cardiac MRI to r/o arrhythmogenic RV dysplasia, EP evaluation and discontinuation of alcohol. Latoya Soto - CLIENT SUCCESS DIRECTOR/carrington/ab doc#: [id number]/job#: [id number] dd: 11/12/2019 17:19:00 dt: 11/12/2019 17:25:00 DICTATING MD/COPIES TO: Moni Lewis MD COPIES MNE: LOU
[2019-11-12] MEDS: METOPROLOL ER 25 MG TABLET PO ×2 (20:12→23:36)
[2019-11-13 01:00] VITALS: O2SAT 98
[2019-11-13 04:25] VITALS: BP 136/81; PULSE 76; RESP 16; TEMP 36.6; O2SAT 97
[2019-11-13 05:40] LABS: BUN Creatinine Ratio 13.8 (6-22); Blood Urea Nitrogen 11 mg/dL (7-17); Calcium 9.2 mg/dL (8.4-10.2); Carbon Dioxide 28 mmol/L (22-32); Chloride 105 mmol/L (98-107); Cholesterol 208 mg/dL (140-199); Estimated Glomerular Filt Rate > 60.0 mL/min (>60); Glucose 99 mg/dL (70-100); HDL Cholesterol 51 mg/dL (40-60); HEMOLYSIS < 15 (0-50); LDL Cholesterol Calculated 138 mg/dL (<100); Potassium 4.2 mmol/L (3.4-5.1); Sodium 139 mmol/L (137-145); Triglycerides 94 mg/dL (35-150)
[2019-11-13 05:47] VITALS: O2SAT 97
[2019-11-13 06:06] LABS: Hemoglobin A1C% w Est Avg Glu 5.1 % (4.0-6.0)
[2019-11-13 09:00] VITALS: O2SAT 98
[2019-11-13 09:35] VITALS: BP 124/85; PULSE 60; RESP 16; TEMP 36.6; O2SAT 97
[2019-11-13] MEDS: METOPROLOL ER 25 MG TABLET PO (10:57)
--- NOTE | 2019-11-13 11:15 | PC.NURSE ---
Discharge: Pt feels ready to d/c home. She has been seen by Dr. Estrada and he gave instructions including the pt may drive. She was given her metoprolol prior to leaving since she has to drive to [place]. Reviewed medication information. Pt is planning on buying a bp cuff so she can check her bp at home. Follow up has been scheduled with her nurse prac and release signed to have records sent. Reviewed rest of information. Questions answered. Pt d/c home first with her parents. (she was up visiting them) and then she will drive from parents home to her home in [place]. Pt knows if she has c/p its a 911 call. Pt reports she will be following a new life style. Going back to vegan, stop alcohol, ect. Pt had no questions or concerns when she left.
--- NOTE | 2019-11-13 11:42 | CM.DPC ---
DCP: continued: case received and discussed in Team Rounds. Dr. Estrada stated pt was ok for d/c to home and with outpt follow up. A check in now shows that she did d/c home this morning: see GWENDOLYN Gibson's notes re details.
--- NOTE | 2019-11-17 08:43 | PM.DS.1 ---
History of Present Illness History of Present Illness Date Patient Seen: 06/13/19 Time Patient Seen: 09:30 Chief complaint: called 911 for SOB/dizziness/emt sent to ER Narrative: As per Dr Kong: Patient is a 59-year-old female with obesity but who otherwise has been in good health, not on any medications, presented to emergency department with complaints of worsening shortness of breath and lightheadedness. On ER telemetry she had several runs of wide complex tachycardia, longest 15 beats, which were asymptomatic. Patient states she was feeling short of breath in lightheaded when came into the ER and then symptoms went away once she was moved to hospital bed. Patient states she had more severe symptoms early this morning which would come and go and seemed to be relieved by rest. She 1st noticed onset of intermittent shortness of breath, lightheadedness and near syncope about 2 weeks ago with significant worsening of symptoms this a.m.. Symptoms did seem to come on during light activity and relieved by rest. She denies any chest pain or syncope. She has 1 cup of coffee in a.m. and does not take any OTC supplements. She does report excess alcohol use typically 3 glasses of wine a day and states she had a little more alcohol last night. She is a nonsmoker. Family history positive for atrial fibrillation in her mom but no history of coronary artery disease. ER vitals initially hypertensive with BP 153/98 and stay moderately elevated, heart rate 80, respirations normal, O2 sat 99%. EKG normal sinus rhythm with PAC. Normal troponin, CBC, lytes, magnesium 1.8. D-dimer mildly elevated but CT angio negative for pulmonary embolism. The radiologist reported distal esophageal thickening with prominent adjacent paraesophageal lymph nodes on CT. Patient does note occasional acid reflux. The ER provider reviewed case with cardiology research professional, Dr. Vigil, who recommended patent get admitted for telemetry monitoring and ECO. Patient is established at [facility] with provider Jennifer Trevizo. Discharge Providers Provider Date of admission: 11/11/19 16:15 Discharge Date: 11/13/19 Discharge provider: Joseluis Estrada DO Summary Hospital Course Hospital Course: Latoya Soto is a 59-year-old female with past medical history of obesity and alcohol use who was admitted for frequent supraventricular arrhythmias. She had an echocardiogram which showed an EF of 50-55%, borderline dilated left ventricle with possible inferior hypokinesis however her endocardial definition was decreased. Her stress test showed low likelihood of ischemia, however during exercise initiation she developed a supraventricular arrhythmia with left bundle branch morphology. Discussed the case with Cardiology, they recommended continuing to monitor the patient overnight after initiation of metoprolol. Metoprolol was started and she remained asymptomatic and did have a notable decrease in the amount of her arrythmia overnight. She ultimately will need a cardiac MRI and follow-up with an field talent qualification specialist as an outpatient for further evaluation to rule out arrhythmogenic RV dysplasia as an outpatient. 1. Nonsustained wide complex tachycardia, present on admission - per cardiology this is likely supraventricular with a left bundle branch morphology. It appeared to be exercise induced. Cardiology would like an outpatient evaluation for possible arrhythmogenic RV dysplasia. They recommended a cardiac MRI and EP referral as an outpatient for further evaluation. -telemetry showed decreased frequency of arrythmias after initiation of metoprolol XL 25 mg BID. -troponins negative, TSH unremarkable -TTE showing EF of 50-55%, possible inferior hypokinesis but poor endocardial definition. She has a borderline dilated left ventricle. No significant valvular disease. -myocardial perfusion stress showed low likelihood of cardiac ischemia. During the treadmill portion she needed to stop quickly as she developed her supraventricular arrhythmia. -outpatient EP referral and cardiac MRI, patient prefers this to be done at [place] which she will need to obtain from her PCP in [place]. 2. Elevated blood pressure, present on admission -patient with moderately elevated BP in ER without prior diagnosis of hypertension -she remains mildly elevated and was started on metoprolol given recommendations above from cardiology. 3. Distal esophageal thickening on CT -radiologist noted distal esophageal thickening and prominent paraesophageal lymph nodes, differential diagnosis includes acid reflux disease versus esophageal CA, patient does report symptoms of occasional heartburn -patient advised of CT findings with recommendation to have an upper endoscopy arranged as outpatient 4. Alcohol dependency -patient aware of excess drinking and states she does plan to cut back on alcohol intake Exam Vital Signs (past 8 hours): Oxygen Delivery Method Room Air Oxygen Flow Rate 0 Narrative Exam Narrative: GENERAL APPEARANCE: Obese female, in no acute distress. SKIN: Inspection of the skin reveals no rashes, ulcerations or petechiae. HEENT: The sclerae were anicteric and conjunctivae were pink and moist. Extraocular movements were intact and pupils were equal, round with normal accommodation. External inspection of the ears and nose showed no scars, lesions, or masses. Lips, teeth, and gums showed normal mucosa. The oral mucosa, hard and soft palate, tongue and posterior pharynx were unremarkable. NECK: Supple and symmetric. There was no thyroid enlargement, and no tenderness, or masses were felt. CHEST: Normal AP diameter and normal contour without any kyphoscoliosis. LUNGS: Auscultation of the lungs revealed no wheezes, rhonchi, or rales. CARDIOVASCULAR: There was a regular rate and rhythm without any murmurs, gallops, rubs. Peripheral pulses were 2+ and symmetric. ABDOMEN: Soft and nontender with normal bowel sounds. No ascites was noted. MUSCULOSKELETAL: There was no tenderness or effusions noted. Muscle strength and tone were normal. EXTREMITIES: No cyanosis, clubbing or edema. NEUROLOGIC: Alert and oriented x 3. Normal affect. Gait was normal. Strength is +5/5 in the Upper Extremities and Lower Extremities Bilaterally. Sensation to touch was normal. Objective Labs Result Diagrams: 11/12/19 06:20 11/13/19 05:00 Discharge Plan Discharge Plan Patient Disposition: Home Discharge comment: You were admitted to the hospital with a supraventricular arrythmia. You underwent an Echocardiogram which showed a dilated left ventricle, but a low normal ejection fraction at 50-55%. You underwent a stress test which showed low risk for any blockages in your arteries, however when exercising you did go in to the arrhythmia. In discussion with Cardiology, you need to be evaluated for a condition called arrythmogenic RV dysplasia. this needs to be evaluated with a cardiac MRI, as well as an appointment with an rn progressive care. You may need to see your primary care provider to obtain these imaging. You were started on a medicine to try and slow your heart rate, if you become dizzy or light headed please check your blood pressure and if low consider reducing her dose to 1 pill a day. If you decide to do this please see care from your primary care provider or hospital clerk. Discharge orders & Medications Prescriptions: New metoprolol succinate 25 mg tablet extended release 24 hr 25 mg PO BID 30 Days Qty: 60 RF: 0 Discharge Health Status Health Concerns: Supraventricular tachycardia Diet/Activity/Treatments Diet: Diet as Tolerated Activity: As tolerated, no heavy exercise given arrythmia during stress testing. Other treatments: YOU HAVE A FOLLOW UP APPOINTMENT WITH DR. NDIAYE SATURDAY THE November AT YOUR PCP'S OFFICE IN [place]. Visit Report/Discharge Packet Instructions: DI for Syncope in Adults (Fainting), Echocardiogram, Cardiac Stress Test, Ventricular Tachycardia, DI for Paroxysmal Supraventricular Tachycardia, DI for Ventricular Tachycardia, How to Prevent Falls Discharge Data Attending Provider: Julian Kong Admit Date/Time: 11/11/19 16:15 Discharges patient from system. Discharge Date/Time: 11/13/19 11:05 Quality VTE Deep Vein Thrombosis/Pulmonary Embolism Present on Admission: No
== END 2019-11-13 11:05 | disposition home or self-care (01) ==
LOC: ED 16:01 → AC 16:15
PROVIDERS: Internal Medicine; Nurse Practitioner Family; Admitting Provider Internal Medicine; Emergency Provider Emergency Medicine; Visit Provider Internal Medicine
DX: I47.2 Ventricular tachycardia (principal); R06.02 Shortness of breath; R42 Dizziness and giddiness
CPT/HCPCS: 36415; 71045; 71275; 78451; 80048; 80053; 80061; 82550; 83036; 83690; 83735; 83880; 84443; 84484; 85025; 85379; 85610; 85730; 93005; 93016; 93017; 93018; 93306; 96361; 96374; 99285; G0378; A9502; Q9967